=== PATIENT | female | born 1960 | race Caucasian/White ===

== ENCOUNTER 2018-06-21 17:56 | Emergency (ER) | payer OTHER ==
[~2018-06-21] VITALS: Ht 162.6 cm; Wt 65.8 kg
[~2018-06-21 17:56] MED LIST: AVAPRO300 MG; BACLOFEN5 GM; DIOVAN HCT 320/1 TAB; HUMALOG KW100 UNIT/1; HUMULIN N3 ML; HUMULIN R500 U/ML; HYDRALAZINE HCL25 MG PO; Intestinex CAP PO; NEURONTIN300 MG; NORVASC10 MG PO; SYNTHROID75 MCG PO; SYNTHROID88 MCG; TENORMIN25 MG; TENORMIN50 M1 PO; VASOTEC20 MG; ZOCOR20 MG; ZOCOR20 MG PO
[2018-06-21] MEDS ORDERED: KAPSPARGO SPRIN50 MG (18:10)
== END 2018-06-21 23:39 | disposition home or self-care (01) ==
LOC: ER 17:56 → CPU-OBS 17:57 → ER 23:39
DX: R07.89 Other chest pain (principal)

== ENCOUNTER 2019-07-20 21:29 | Emergency (ER) | payer OTHER ==
[~2019-07-20] VITALS: Ht 160 cm; Wt 67.1 kg
[~2019-07-20 21:29] MED LIST changes: +KAPSPARGO SPRIN50 MG
== END 2019-07-20 22:15 | disposition home or self-care (01) ==
LOC: ER 21:29
DX: I16.0 Hypertensive urgency (principal); I10 Essential (primary) hypertension

== ENCOUNTER 2019-08-20 15:16 | Inpatient (IN) | payer OTHER ==
[~2019-08-20] VITALS: Ht 162.6 cm; Wt 63.5 kg
[2019-08-21] MEDS ORDERED: SINGULAIR 10MG10 MG PO (10:37)
== END 2019-08-24 13:07 | disposition home or self-care (01) | DRG 690 ==
LOC: ER 15:16 → SEC-K 08-21 09:25 → MEDI 08-21 09:25 → MEDJ 08-21 11:05 → MEDI 08-21 13:38
PROVIDERS: ADMIT Internal Medicine; ATTEND Internal Medicine
PROC: BW40ZZZ Ultrasonography of Abdomen (ICD-10-PCS; principal; 2019-08-21)
PROC: BW24ZZZ Computerized Tomography (CT Scan) of Chest and Abdomen (ICD-10-PCS; 2019-08-21)
PROC: 4A0B78Z Measurement of Gastrointestinal Motility, Via Natural or Artificial Opening (ICD-10-PCS; 2019-08-23)
DX: N39.0 Urinary tract infection, site not specified (principal); R65.10 Systemic inflammatory response syndrome (SIRS) of non-infectious origin without acute organ dysfunction; N17.9 Acute kidney failure, unspecified; E10.22 Type 1 diabetes mellitus with diabetic chronic kidney disease; I12.9 Hypertensive chronic kidney disease with stage 1 through stage 4 chronic kidney disease, or unspecified chronic kidney disease; N18.3 Chronic kidney disease, stage 3 (moderate); R09.02 Hypoxemia; K29.00 Acute gastritis without bleeding; E03.8 Other specified hypothyroidism; E78.49 Other hyperlipidemia; K31.84 Gastroparesis; E87.5 Hyperkalemia; E86.0 Dehydration; E10.42 Type 1 diabetes mellitus with diabetic polyneuropathy; E10.319 Type 1 diabetes mellitus with unspecified diabetic retinopathy without macular edema; E10.649 Type 1 diabetes mellitus with hypoglycemia without coma; B96.1 Klebsiella pneumoniae [K. pneumoniae] as the cause of diseases classified elsewhere

== ENCOUNTER 2019-09-05 10:20 | Inpatient (IN) | payer OTHER ==
[~2019-09-05] VITALS: Ht 162.6 cm; Wt 63.5 kg
[~2019-09-05 10:20] MED LIST changes: +SINGULAIR 10MG10 MG PO
== END 2019-09-08 14:13 | disposition home or self-care (01) | DRG 394 ==
LOC: ER 10:20 → MEDI 18:34
PROVIDERS: ADMIT Internal Medicine; ATTEND Internal Medicine
PROC: 4A033R1 Measurement of Arterial Saturation, Peripheral, Percutaneous Approach (ICD-10-PCS; principal; 2019-09-05)
PROC: BW40ZZZ Ultrasonography of Abdomen (ICD-10-PCS; 2019-09-05)
PROC: 0DB58ZX Excision of Esophagus, Via Natural or Artificial Opening Endoscopic, Diagnostic (ICD-10-PCS; 2019-09-07)
PROC: 0DB78ZX Excision of Stomach, Pylorus, Via Natural or Artificial Opening Endoscopic, Diagnostic (ICD-10-PCS; 2019-09-07)
PROC: 0DB68ZX Excision of Stomach, Via Natural or Artificial Opening Endoscopic, Diagnostic (ICD-10-PCS; 2019-09-07)
DX: D13.1 Benign neoplasm of stomach (principal); E87.1 Hypo-osmolality and hyponatremia; K31.84 Gastroparesis; E10.43 Type 1 diabetes mellitus with diabetic autonomic (poly)neuropathy; E10.22 Type 1 diabetes mellitus with diabetic chronic kidney disease; N18.3 Chronic kidney disease, stage 3 (moderate); E10.65 Type 1 diabetes mellitus with hyperglycemia; E87.5 Hyperkalemia; E86.0 Dehydration; E10.649 Type 1 diabetes mellitus with hypoglycemia without coma; K29.60 Other gastritis without bleeding

== ENCOUNTER 2019-09-15 00:02 | Emergency (ER) | payer OTHER ==
[~2019-09-15] VITALS: Ht 162.6 cm; Wt 61.2 kg
== END 2019-09-15 04:50 | disposition home or self-care (01) ==
LOC: ER 00:02
DX: E13.649 Other specified diabetes mellitus with hypoglycemia without coma (principal); Z79.4 Long term (current) use of insulin

== ENCOUNTER 2019-11-17 19:51 | Emergency (ER) | payer OTHER ==
[~2019-11-17] VITALS: Ht 162.6 cm; Wt 59.0 kg
[2019-11-17] MEDS ORDERED: HYDRALAZINE HC100 MG (20:01)
[2019-11-17] MEDS ORDERED: HUMULIN 70100 UNIT/1 (20:02)
[2019-11-18] MEDS ORDERED: FAMOTIDINE20 MG PO (07:01)
[2019-11-18] MEDS ORDERED: HYOSCYAMINE0.125 MG PO (07:01)
== END 2019-11-18 07:30 | disposition home or self-care (01) ==
LOC: ER 19:51
DX: K31.84 Gastroparesis (principal); N17.8 Other acute kidney failure; Z20.828 Contact with and (suspected) exposure to other viral communicable diseases

== ENCOUNTER 2019-12-10 16:59 | Emergency (ER) | payer OTHER ==
[~2019-12-10] VITALS: Ht 162.6 cm; Wt 59.0 kg
[~2019-12-10 16:59] MED LIST changes: +FAMOTIDINE20 MG PO; +HUMULIN 70100 UNIT/1; +HYDRALAZINE HC100 MG; +HYOSCYAMINE0.125 MG PO
== END 2019-12-10 20:22 | disposition home or self-care (01) ==
LOC: ER 16:59
DX: E11.43 Type 2 diabetes mellitus with diabetic autonomic (poly)neuropathy (principal); K31.84 Gastroparesis; R10.84 Generalized abdominal pain; Z79.4 Long term (current) use of insulin

== ENCOUNTER 2020-06-20 23:47 | Emergency (ER) | payer OTHER ==
[~2020-06-20] VITALS: Ht 162.6 cm; Wt 63.5 kg
== END 2020-06-21 05:32 | disposition home or self-care (01) ==
LOC: ER 23:47
DX: E11.649 Type 2 diabetes mellitus with hypoglycemia without coma (principal)

== ENCOUNTER 2021-04-26 11:25 | Inpatient (IN) | payer OTHER ==
[~2021-04-26] VITALS: Ht 162.6 cm; Wt 63.5 kg
[2021-04-26] MEDS ORDERED: HUMALOG100 UNIT/2 SQ (12:20)
[2021-04-26] MEDS ORDERED: CARDURA1 MG (12:20)
== END 2021-05-08 19:28 | disposition home or self-care (01) | DRG 683 ==
LOC: ER 11:25 → MEDJ 04-27 11:55 → SEC-K 04-27 11:55 → MEDI 04-27 17:52 → MEDJ 04-27 18:06 → MEDI 04-30 15:46 → MEDJ 04-30 17:23
PROVIDERS: Radiology Vascular & Interventional Radiology; ADMIT Internal Medicine; ATTEND Internal Medicine
PROC: B513YZA Fluoroscopy of Right Jugular Veins using Other Contrast, Guidance (ICD-10-PCS; 2021-04-30)
PROC: 05HM33Z Insertion of Infusion Device into Right Internal Jugular Vein, Percutaneous Approach (ICD-10-PCS; principal; 2021-04-30 18:00)
PROC: 5A1D70Z Performance of Urinary Filtration, Intermittent, Less than 6 Hours Per Day (ICD-10-PCS; 2021-05-01)
PROC: B54PZZZ Ultrasonography of Bilateral Upper Extremity Veins (ICD-10-PCS; 2021-05-02)
PROC: 5A1D70Z Performance of Urinary Filtration, Intermittent, Less than 6 Hours Per Day (ICD-10-PCS; 2021-05-03)
PROC: 5A1D70Z Performance of Urinary Filtration, Intermittent, Less than 6 Hours Per Day (ICD-10-PCS; 2021-05-05)
PROC: 5A1D70Z Performance of Urinary Filtration, Intermittent, Less than 6 Hours Per Day (ICD-10-PCS; 2021-05-06)
PROC: 5A1D70Z Performance of Urinary Filtration, Intermittent, Less than 6 Hours Per Day (ICD-10-PCS; 2021-05-08)
DX: I12.9 Hypertensive chronic kidney disease with stage 1 through stage 4 chronic kidney disease, or unspecified chronic kidney disease (principal); N17.8 Other acute kidney failure; N18.6 End stage renal disease; E86.0 Dehydration; E87.5 Hyperkalemia; K31.84 Gastroparesis; Z79.4 Long term (current) use of insulin; Z99.2 Dependence on renal dialysis; E03.8 Other specified hypothyroidism; I12.0 Hypertensive chronic kidney disease with stage 5 chronic kidney disease or end stage renal disease; E10.22 Type 1 diabetes mellitus with diabetic chronic kidney disease; E10.65 Type 1 diabetes mellitus with hyperglycemia; E10.42 Type 1 diabetes mellitus with diabetic polyneuropathy; Z20.822 Contact with and (suspected) exposure to COVID-19; K21.9 Gastro-esophageal reflux disease without esophagitis

== ENCOUNTER 2021-10-29 13:39 | Inpatient (IN) | payer OTHER ==
[~2021-10-29] VITALS: Ht 162.6 cm; Wt 59.0 kg
[~2021-10-29 13:39] MED LIST changes: +CARDURA1 MG; +HUMALOG100 UNIT/2 SQ
[2021-10-29] MEDS ORDERED: CARDURA1 MG (13:53)
[2021-10-29] MEDS ORDERED: HUMULIN 70100 UNIT/2 SQ (13:54)
[2021-10-29] MEDS ORDERED: SYNTHROID75 MCG PO (13:55)
[2021-10-29] MEDS ORDERED: HUMALOG100 UNIT/2 (13:55)
[2021-10-29] MEDS ORDERED: TOPROL XL50 M1 PO (13:55)
[2021-10-29] MEDS ORDERED: SIMVASTATIN20 MG PO (13:55)
[2021-10-29] MEDS ORDERED: HYDRALAZINE HC100 MG PO (13:56)
[2021-10-29] MEDS ORDERED: NEURONTIN300 MG PO (13:56)
== END 2021-10-31 16:54 | disposition home or self-care (01) | DRG 555 ==
LOC: ER 13:39 → MEDJ 19:38
PROVIDERS: ADMIT Internal Medicine; ATTEND Internal Medicine
PROC: B54DZZZ Ultrasonography of Bilateral Lower Extremity Veins (ICD-10-PCS; principal; 2021-10-29)
DX: M62.838 Other muscle spasm (principal); N18.6 End stage renal disease; I12.0 Hypertensive chronic kidney disease with stage 5 chronic kidney disease or end stage renal disease; M79.662 Pain in left lower leg; M79.661 Pain in right lower leg; D63.1 Anemia in chronic kidney disease; Z20.822 Contact with and (suspected) exposure to COVID-19; Z99.2 Dependence on renal dialysis; Z91.15 Patient's noncompliance with renal dialysis

== ENCOUNTER 2022-08-14 08:50 | Emergency (ER) | payer OTHER ==
[~2022-08-14] VITALS: Ht 160 cm; Wt 58.1 kg
[~2022-08-14 08:50] MED LIST changes: +HUMALOG100 UNIT/2; +HUMULIN 70100 UNIT/2 SQ; +HYDRALAZINE HC100 MG PO; +NEURONTIN300 MG PO; +SIMVASTATIN20 MG PO; +TOPROL XL50 M1 PO
== END 2022-08-14 12:47 | disposition home or self-care (01) ==
LOC: ER 08:50
DX: U07.1 COVID-19 (principal); J02.8 Acute pharyngitis due to other specified organisms; E11.22 Type 2 diabetes mellitus with diabetic chronic kidney disease; N18.6 End stage renal disease; Z99.2 Dependence on renal dialysis; Z79.4 Long term (current) use of insulin; I12.0 Hypertensive chronic kidney disease with stage 5 chronic kidney disease or end stage renal disease; J45.909 Unspecified asthma, uncomplicated; E78.00 Pure hypercholesterolemia, unspecified

== ENCOUNTER 2024-06-22 10:39 | Inpatient (IN) | payer OTHER ==
[~2024-06-22] VITALS: Ht 160 cm; Wt 54.9 kg
[2024-06-22] MEDS ORDERED: LORazepam 2 MG/ML VIAL ONE (10:42)
[2024-06-22] MEDS ORDERED: 0.9 % SODIUM CHLORIDE 1,000 ML IV SCH (11:15)
[2024-06-22 12:16] LABS: HEMATOCRIT 32.9 % (36.0-45.00); HEMOGLOBIN 10.9 g/dL (12.0-15.00); MEAN CELL VOLUME 95.6 fL (80.00-100.00); MEAN CORPUSCULAR HEMOGLOBIN 31.8 pg (27.00-32.0); MEAN CORPUSCULAR HGB CONC 33.2 g/dl (32.0-36.0); PLATELET COUNT 197 K/uL (150-450); RED BLOOD COUNT 3.44 M/uL (4.00-6.00); RED CELL DISTRIBUTION WIDTH 15.1 % (11.5-14.5)
[2024-06-22 12:42] LABS: CALCIUM 10.7 mg/dL (8.5-10.1); GFR 9.47; POTASSIUM 4.12 mEq/L (3.5-5.1)
[2024-06-22 12:46] LABS: CREATININE SERUM 4.69 mg/dL (0.55-1.02)
[2024-06-22] MEDS ORDERED: SIMVASTATIN 40 MG TABLET PO SCH (17:05)
[2024-06-22] MEDS ORDERED: DEXTROSE 50 % IN WATER 0.5 G/ML VIAL IV PRN (17:15)
[2024-06-22] MEDS ORDERED: INSULIN LISPRO 1,000 UNIT/10 ML UNITS SUBCUTANEO PRN (17:15)
[2024-06-22] MEDS ORDERED: CEFTRIAXONE SODIUM 2,000 MG in 0.9 % SODIUM CHLORIDE 100 ML IV SCH (17:20)
[2024-06-22 18:40] LABS: CHOL HDL RATIO 2.4 (0-5.0)
[2024-06-22 18:51] LABS: C-REACTIVE PROTEIN 1.2 MG/DL (0.00-0.29)
[2024-06-22] MEDS ORDERED: CEFTRIAXONE SODIUM 1,000 MG VIAL ONE (19:46)
[2024-06-22 20:15] LABS: PH,URINE >= 9.0 (5.0-8.0); URINE APPEARANCE Clear; URINE BILIRRUBIN Negative (NEGATIVE); URINE BLOOD Negative; URINE COLOR Yellow; URINE KETONE Negative (NEGATIVE); URINE LEUKOCYTE Trace; URINE NITRATE Negative; URINE UROBILINOGEN 0.2 E.U./dl
[2024-06-22 20:19] LABS: URINE BACTERIA 2450.3 uL (0.0-1933); URINE EPITHELIAL CELLS 47.3 uL (0.0-38.8); URINE RBC 4.1 uL (0.0-20.8); URINE WBC 68.8 uL (0.0-23.2)
[2024-06-22 20:43] LABS: URINE CAST 1.17 uL (0.0-1.40); URINE GLUCOSE 250 MG/DL (NEGATIVE); URINE PROTEIN 300 (NEGATIVE)
[2024-06-22] MEDS ORDERED: HEPARIN SODIUM,PORCINE 5,000 UNITS/ML VIAL SUBCUTANEO SCH (21:00)
[2024-06-22] MEDS ORDERED: HEPARIN SODIUM,PORCINE 5,000 UNITS/ML VIAL ONE (21:45)
[2024-06-22 22:11] LABS: COVID-19 AG NEGATIVE (NEGATIVE)
[2024-06-22 22:13] LABS: INFLUENZA A AG NEGATIVE (NEGATIVE)
[2024-06-23 02:56] VITALS: BP 121/68; O2SAT 100
[2024-06-23] MEDS ORDERED: LEVOTHYROXINE SODIUM 75 MCG TABLET PO SCH (06:00)
[2024-06-23 07:50] VITALS: BP 135/53
[2024-06-23] MEDS ORDERED: METOPROLOL SUCCINATE 50 MG TAB.SR.24H PO SCH (09:00)
[2024-06-23] MEDS ORDERED: PANTOPRAZOLE SODIUM 40 MG TABLET.DR PO SCH (09:00)
[2024-06-23] MEDS ORDERED: VANCOMYCIN HCL 5 MG/ML REDILUIDO IV ONE (16:00)
[2024-06-23 18:31] VITALS: BP 130/55; O2SAT 100
[2024-06-23] MEDS ORDERED: INSULIN NPH HUMAN ISOPHANE 1,000 UNITS/10 ML UNITS SUBCUTANEO STA (21:26)
[2024-06-23] MEDS ORDERED: INSULIN NPH HUMAN ISOPHANE 1,000 UNITS/10 ML UNITS SUBCUTANEO ONE (22:07)
[2024-06-24 02:02] VITALS: BP 171/65; O2SAT 97
[2024-06-24 06:24] LABS: HEMATOCRIT 30.9 % (36.0-45.00); HEMOGLOBIN 10.3 g/dL (12.0-15.00); MEAN CORPUSCULAR HEMOGLOBIN 31.9 pg (27.00-32.0); MEAN CORPUSCULAR HGB CONC 33.5 g/dl (32.0-36.0); PLATELET COUNT 169 K/uL (150-450); RED BLOOD COUNT 3.25 M/uL (4.00-6.00); RED CELL DISTRIBUTION WIDTH 14.6 % (11.5-14.5)
[2024-06-24 07:27] LABS: ALBUMIN 3.1 gm/dL (3.4-5.0); BILIRUBIN TOTAL 0.35 mg/dL (0.3-1.2); GFR 10.5; GLOBULINA 3.6 G/DL (2.4-3.5); MAGNESIUM 1.8 mg/dL (1.8-2.4); PHOSPHOROUS 5.5 mg/dL (2.5-4.9); POTASSIUM 4.47 mEq/L (3.5-5.1); TOTAL PROTEIN 6.7 gm/dL (6.4-8.2)
[2024-06-24 07:52] LABS: CREATININE SERUM 4.29 mg/dL (0.55-1.02)
[2024-06-24] MEDS ORDERED: INSULIN NPH HUMAN ISOPHANE 1,000 UNITS/10 ML UNITS SUBCUTANEO SCH ×2 (08:00→21:00)
[2024-06-24] MEDS ORDERED: INSULIN LISPRO 1,000 UNIT/10 ML UNITS SUBCUTANEO SCH (08:00)
[2024-06-24] MEDS ORDERED: CLOPIDOGREL BISULFATE 75 MG TABLET PO SCH (09:00)
[2024-06-24 09:47] VITALS: BP 152/79; O2SAT 97
[2024-06-24] MEDS ORDERED: ENOXAPARIN SODIUM 30 MG/0.3 ML SYRINGE SUBCUTANEO SCH (13:36)
[2024-06-24] MEDS ORDERED: HEPARIN SODIUM,PORCINE 5,000 UNITS/ML VIAL SUBCUTANEO NR (14:00)
[2024-06-24 16:31] VITALS: BP 127/68
[2024-06-25 03:23] VITALS: BP 156/74; O2SAT 98
[2024-06-25 09:01] VITALS: BP 178/71; O2SAT 95
[2024-06-25 17:12] VITALS: BP 153/64
[2024-06-26 03:33] VITALS: BP 181/81; O2SAT 99
[2024-06-26 05:52] LABS: HEMATOCRIT 27.1 % (36.0-45.00); MEAN CELL VOLUME 96.9 fL (80.00-100.00); MEAN CORPUSCULAR HEMOGLOBIN 32.1 pg (27.00-32.0); MEAN CORPUSCULAR HGB CONC 33.2 g/dl (32.0-36.0); PLATELET COUNT 165 K/uL (150-450); RED CELL DISTRIBUTION WIDTH 14.9 % (11.5-14.5)
[2024-06-26 06:56] LABS: ALBUMIN 2.8 gm/dL (3.4-5.0); BILIRUBIN TOTAL 0.21 mg/dL (0.3-1.2); CALCIUM 9.1 mg/dL (8.5-10.1); GFR 5.61; GLOBULINA 3.1 G/DL (2.4-3.5); MAGNESIUM 1.7 mg/dL (1.8-2.4); POTASSIUM 5.31 mEq/L (3.5-5.1); TOTAL PROTEIN 5.9 gm/dL (6.4-8.2)
[2024-06-26 07:48] LABS: CREATININE SERUM 7.38 mg/dL (0.55-1.02)
[2024-06-26 08:17] VITALS: BP 190/78
[2024-06-26] MEDS ORDERED: SODIUM POLYSTYRENE SULFONATE 30G/8 TSP PO STA (11:26)
[2024-06-26] MEDS ORDERED: MAGNESIUM SULFATE IN WATER 50 ML IV NR (12:30)
[2024-06-26] MEDS ORDERED: AMLODIPINE BESYLATE 5 MG TABLET PO SCH (16:31)
[2024-06-26] MEDS ORDERED: hydrALAZINE HCL 50 MG TABLET PO SCH (17:49)
[2024-06-26 18:07] VITALS: BP 156/74; O2SAT 100
[2024-06-26] MEDS ORDERED: MIRTAZAPINE 15 MG TABLET PO SCH (21:00)
[2024-06-26] MEDS ORDERED: LORazepam 0.5 MG TABLET PO SCH (21:00)
[2024-06-27] VITALS: BP 157/65; O2SAT 100
[2024-06-27 06:20] LABS: HEMATOCRIT 28.7 % (36.0-45.00); HEMOGLOBIN 9.7 g/dL (12.0-15.00); MEAN CELL VOLUME 96.5 fL (80.00-100.00); MEAN CORPUSCULAR HEMOGLOBIN 32.5 pg (27.00-32.0); MEAN CORPUSCULAR HGB CONC 33.7 g/dl (32.0-36.0); PLATELET COUNT 182 K/uL (150-450); RED BLOOD COUNT 2.98 M/uL (4.00-6.00); RED CELL DISTRIBUTION WIDTH 14.6 % (11.5-14.5)
[2024-06-27 07:03] LABS: ALBUMIN 3.1 gm/dL (3.4-5.0); BILIRUBIN TOTAL 0.31 mg/dL (0.3-1.2); CALCIUM 9.9 mg/dL (8.5-10.1); GFR 9.45; GLOBULINA 3.5 G/DL (2.4-3.5); MAGNESIUM 2.3 mg/dL (1.8-2.4); PHOSPHOROUS 4.9 mg/dL (2.5-4.9); POTASSIUM 4.63 mEq/L (3.5-5.1); TOTAL PROTEIN 6.6 gm/dL (6.4-8.2)
[2024-06-27 07:45] LABS: CREATININE SERUM 4.7 mg/dL (0.55-1.02)
[2024-06-27] MEDS ORDERED: AMLODIPINE BESYLATE 5 MG TABLET PO SCH (09:00)
[2024-06-27] MEDS ORDERED: EPOETIN ALFA-EPBX 10,000 UNIT/ML VIAL (Retacrit) SUBCUTANEO SCH (09:00)
[2024-06-27] MEDS ORDERED: hydrALAZINE HCL 50 MG TABLET PO SCH (09:00)
[2024-06-27] MEDS ORDERED: HEPARIN SODIUM,PORCINE 5,000 UNITS/ML VIAL SUBCUTANEO SCH (09:00)
[2024-06-27 09:02] VITALS: BP 133/62; O2SAT 97
[2024-06-27 20:35] VITALS: BP 158/70; O2SAT 100
[2024-06-28 01:03] VITALS: BP 154/57; O2SAT 100
[2024-06-28 08:00] VITALS: BP 168/73
[2024-06-28] MEDS ORDERED: NIFEDIPINE ER30 M1 PO (13:16)
[2024-06-28] MEDS ORDERED: TOPROL XL50 M1 PO (13:16)
[2024-06-28] MEDS ORDERED: CLOPIDOGREL BIS75 MG PO (13:16)
[2024-06-28] MEDS ORDERED: LEVOTHYROXINE75 MCG PO (13:17)
[2024-06-28] MEDS ORDERED: SIMVASTATIN40 MG PO (13:17)
[2024-06-28] MEDS ORDERED: HYDRALAZINE HCL50 MG PO (13:17)
[2024-06-28] MEDS ORDERED: HEPARIN SODIUM,PORCINE 5,000 UNITS/ML VIAL IV NR (17:00)
[2024-06-28] MEDS ORDERED: NIFEDIPINE 30 MG TAB.SA.OSM PO SCH (17:00)
[2024-06-28 18:15] VITALS: BP 153/54; O2SAT 100
== END 2024-06-28 18:54 | disposition home or self-care (01) | DRG 579 ==
LOC: ER 10:39 → MEDI 17:52
PROVIDERS: Emergency Medicine; Internal Medicine; ADMIT Internal Medicine; ATTEND Internal Medicine
PROC: B54DZZZ Ultrasonography of Bilateral Lower Extremity Veins (ICD-10-PCS; 2024-06-22)
PROC: B44HZZZ Ultrasonography of Bilateral Lower Extremity Arteries (ICD-10-PCS; 2024-06-22)
PROC: 0JBN3ZZ Excision of Right Lower Leg Subcutaneous Tissue and Fascia, Percutaneous Approach (ICD-10-PCS; principal; 2024-06-23)
DX: L97.818 Non-pressure chronic ulcer of other part of right lower leg with other specified severity (principal); N18.6 End stage renal disease; L03.115 Cellulitis of right lower limb; N17.8 Other acute kidney failure; I12.0 Hypertensive chronic kidney disease with stage 5 chronic kidney disease or end stage renal disease; E11.622 Type 2 diabetes mellitus with other skin ulcer; Z79.4 Long term (current) use of insulin; L08.89 Other specified local infections of the skin and subcutaneous tissue; E03.8 Other specified hypothyroidism; I10 Essential (primary) hypertension; E78.49 Other hyperlipidemia; E87.5 Hyperkalemia; E83.42 Hypomagnesemia; Z99.2 Dependence on renal dialysis; E11.22 Type 2 diabetes mellitus with diabetic chronic kidney disease

== ENCOUNTER 2024-07-30 04:54 | Emergency (ER) | payer OTHER ==
[~2024-07-30] VITALS: Ht 160 cm; Wt 62.6 kg
[~2024-07-30 04:54] MED LIST changes: +CLOPIDOGREL BIS75 MG PO; +HYDRALAZINE HCL50 MG PO; +LEVOTHYROXINE75 MCG PO; +NIFEDIPINE ER30 M1 PO; +SIMVASTATIN40 MG PO
== END 2024-07-30 06:50 | disposition home or self-care (01) ==
LOC: ER 05:10
DX: G62.9 Polyneuropathy, unspecified (principal); E11.9 Type 2 diabetes mellitus without complications; Z79.4 Long term (current) use of insulin

== ENCOUNTER 2024-08-25 14:46 | Inpatient (IN) | payer OTHER ==
[~2024-08-25] VITALS: Ht 160 cm; Wt 59.0 kg
--- NOTE | 2024-08-25 15:18 | NUR ---
SE RECIBE PACIENTE ALERTA Y ORIENTADA X3 LA CUAL REFIERE VENIR A CAUSA DE QUE DASH ESTADO PRESENTANDO SINTOMAS DE DOLOR DE ESPALDA BAJA Y DOLOR EN COSTADO DERECHO. LA MISMA REFIERE QUE SE ATIENDE CON DR. JAYLAN OROZCO QUIE LA DIALISA.
[2024-08-25] MEDS ORDERED: ACETAMINOPHEN 500 MG GEL..CAP PO ONE ×2 (16:45→17:39)
[2024-08-25 18:11] LABS: BASO % 0.9 % (0.1-1.2); EOS # 0.15 (0.04-0.54); EOS % 2.4 % (0.7-7.0); LYMPH # 2.20 (1.18-3.74); LYMPH % 34.8 % (19.3-53.1); MEAN PLATELET VOLUME 10.40 fl (9.4-12.4); MONO # 0.68 (0.24-0.82); MONO % 10.8 % (4.7-12.5); NEUT # 3.22 (1.56-6.13); NEUT % 50.9 % (34.0-71.1); RED CELL DISTRIBUTION WIDTH 14.6 % (11.6-14.4)
[2024-08-25 18:14] LABS: ERYTHROCYTE SEDIMENTATION RATE 110 mm/hr (0-30)
[2024-08-25 18:32] LABS: INR 1.06
[2024-08-25 18:42] LABS: ALT/SGPT 10.0 U/L (12-78); AST/SGOT 8.0 U/L (15-37); BILIRUBIN TOTAL 0.39 mg/dL (0.3-1.2); GLOBULINA 4.3 G/DL (2.4-3.5)
--- NOTE | 2024-08-25 18:42 | NUR ---
SE REALIZA LAB CATE ORDEN MEDICA BAJO MEDIDAS ASEPTICAS. SE ORIENTA PTE QUIEN REFIERE ENTENDER Y ACEPTAR
[2024-08-25 18:44] LABS: BUN CREA RATIO 8.0 (7.0-25.0); OSMOLALITY SERUM 292.0 MOSM/KG (275-295)
[2024-08-25 18:49] LABS: GFR 6.58
[2024-08-25] MEDS ORDERED: DEXTROSE 50 % IN WATER 0.5 G/ML VIAL IV ONE ×2 (19:15→19:17)
[2024-08-25 19:36] LABS: CREATININE SERUM 6.43 mg/dL (0.55-1.02); GLUCOSE FASTING 37.0 mg/dL (65-100)
[2024-08-26] MEDS ORDERED: DEXTROSE 50 % IN WATER 0.5 G/ML VIAL IV STA (05:37)
[2024-08-26] MEDS ORDERED: KETOROLAC TROMETHAMINE 30 MG VIAL IV STA (05:41)
--- NOTE | 2024-08-26 05:54 | NUR ---
SE REALIZA DXT, PACIENTE PRESENTA 44MG/DL. SE ADMINISTRA DEXTROSE 25GM IV STAT Y MEDICAMENTO PARA EL DOLOR EN CADERA IZQUIERDA CATE ORDEN MEDICA. SE COORDINA NIEVES X.
--- NOTE | 2024-08-26 07:54 | NUR ---
PTE EN CAMA CON BARBADA CON IVF'S PATENTE Y GAETANO DE EDEMA. SE LE S/V Y SE DOCUMETA. SE MANTIENE EN CONSULTA CON SHARON DHALIWAL LA CUAL SE MANTIENE NOTIFICADA. SE MANTIENE BAJO OBSERVACION.
[2024-08-26] MEDS ORDERED: ORPHENADRINE CITRATE 100 MG TABLET PO SCH (13:42)
[2024-08-26] MEDS ORDERED: MEPERIDINE HCL/PF 25 MG/ML VIAL IV PRN (13:45)
[2024-08-26] MEDS ORDERED: INSULIN LISPRO 1,000 UNIT/10 ML UNITS SUBCUTANEO PRN (13:45)
[2024-08-26] MEDS ORDERED: DEXTROSE 50 % IN WATER 0.5 G/ML VIAL IV PRN (13:45)
[2024-08-26] MEDS ORDERED: VANCOMYCIN HCL 1,000 MG VIAL IV SCH ×2 (13:45→17:00)
[2024-08-26 14:50] VITALS: BP 115/78
[2024-08-26] MEDS ORDERED: SIMVASTATIN 40 MG TABLET PO SCH (17:00)
[2024-08-26] MEDS ORDERED: INSULIN NPH HUMAN ISOPHANE 1,000 UNITS/10 ML UNITS SUBCUTANEO SCH (17:00)
[2024-08-26] MEDS ORDERED: INSULIN LISPRO 1,000 UNIT/10 ML UNITS SUBCUTANEO SCH (17:00)
[2024-08-26] MEDS ORDERED: GABAPENTIN 300 MG CAPSULE PO SCH (17:00)
[2024-08-26 17:10] VITALS: BP 158/75; O2SAT 95
[2024-08-27] VITALS: BP 154/67; O2SAT 97
[2024-08-27] MEDS ORDERED: LEVOTHYROXINE SODIUM 75 MCG TABLET PO SCH (06:00)
[2024-08-27 08:00] VITALS: BP 194/84; O2SAT 98
[2024-08-27 08:09] LABS: BASO % 1.0 % (0.1-1.2); EOS # 0.28 (0.04-0.54); EOS % 4.0 % (0.7-7.0); LYMPH # 1.54 (1.18-3.74); LYMPH % 21.8 % (19.3-53.1); MEAN PLATELET VOLUME 11.20 fl (9.4-12.4); MONO # 0.70 (0.24-0.82); MONO % 9.9 % (4.7-12.5); NEUT # 4.47 (1.56-6.13); NEUT % 63.2 % (34.0-71.1); RED CELL DISTRIBUTION WIDTH 14.5 % (11.6-14.4)
[2024-08-27 08:36] LABS: ALT/SGPT 9.0 U/L (12-78); AST/SGOT 8.0 U/L (15-37); BILIRUBIN TOTAL 0.43 mg/dL (0.3-1.2); GLOBULINA 3.6 G/DL (2.4-3.5)
[2024-08-27] MEDS ORDERED: INSULIN NPH HUMAN ISOPHANE 1,000 UNITS/10 ML UNITS SUBCUTANEO SCH (09:00)
[2024-08-27] MEDS ORDERED: METOPROLOL SUCCINATE 50 MG TAB.SR.24H PO SCH (09:00)
[2024-08-27 09:30] LABS: BUN CREA RATIO 9.0 (7.0-25.0); GFR 4.97; OSMOLALITY SERUM 305.0 MOSM/KG (275-295)
[2024-08-27 10:31] LABS: GLUCOSE FASTING 38.0 mg/dL (65-100)
[2024-08-27 10:32] LABS: CREATININE SERUM 8.2 mg/dL (0.55-1.02)
[2024-08-27] MEDS ORDERED: CALCIUM GLUCONATE 100 MG/ML VIAL IV STA (12:40)
[2024-08-27] MEDS ORDERED: SODIUM POLYSTYRENE SULFONATE 30G/8 TSP PO SCH (13:00)
[2024-08-27] MEDS ORDERED: LACTULOSE 20 G/30 ML BLIST.PACK PO SCH (13:00)
[2024-08-27] MEDS ORDERED: DEXTROSE 10 % IN WATER 1,000 ML IV SCH (13:30)
[2024-08-27] MEDS ORDERED: HEPARIN SODIUM,PORCINE 1,000 UNITS/ML VIAL IV SCH (13:30)
[2024-08-27] MEDS ORDERED: HEPARIN SODIUM,PORCINE 1,000 UNITS/ML VIAL SPEPROC NR (13:30)
[2024-08-27] MEDS ORDERED: INSULIN LISPRO 1,000 UNIT/10 ML UNITS SUBCUTANEO PRN (15:30)
[2024-08-27] MEDS ORDERED: DEXTROSE 50 % IN WATER 0.5 G/ML VIAL IV PRN (15:30)
[2024-08-27 16:00] VITALS: BP 161/67; O2SAT 95
[2024-08-27] MEDS ORDERED: DEXTROSE PO STA (17:00)
[2024-08-28 01:34] VITALS: BP 114/59; O2SAT 96
[2024-08-28 06:48] LABS: ALT/SGPT 10.0 U/L (12-78); AST/SGOT 9.0 U/L (15-37); BILIRUBIN TOTAL 0.53 mg/dL (0.3-1.2); BUN CREA RATIO 7.0 (7.0-25.0); GFR 7.88; GLOBULINA 3.9 G/DL (2.4-3.5)
[2024-08-28 07:42] LABS: CREATININE SERUM 5.5 mg/dL (0.55-1.02); GLUCOSE FASTING 220.0 mg/dL (65-100); OSMOLALITY SERUM 288.0 MOSM/KG (275-295)
[2024-08-28 08:00] VITALS: BP 134/69; O2SAT 98
[2024-08-28 16:40] VITALS: BP 100/63; O2SAT 99
[2024-08-28] MEDS ORDERED: TRIAMCINOLONE ACETONIDE TOP SCH (17:00)
[2024-08-29 00:28] VITALS: BP 105/60; O2SAT 97
[2024-08-29 08:33] LABS: ALT/SGPT 9.0 U/L (12-78); AST/SGOT 8.0 U/L (15-37); BILIRUBIN TOTAL 0.46 mg/dL (0.3-1.2); GLOBULINA 3.5 G/DL (2.4-3.5); T4 TOTAL 8.71 UG/DL (4.8-13.9)
[2024-08-29 09:21] LABS: BUN CREA RATIO 7.0 (7.0-25.0); GFR 5.57; GLUCOSE FASTING 249.0 mg/dL (65-100); OSMOLALITY SERUM 292.0 MOSM/KG (275-295); TSH 0.053 uIU/mL (0.358-3.74)
[2024-08-29 09:23] LABS: CREATININE SERUM 7.43 mg/dL (0.55-1.02)
[2024-08-29 16:59] VITALS: BP 127/67; O2SAT 95
== END 2024-08-29 21:05 | disposition home or self-care (01) | DRG 73 ==
LOC: ER 14:46 → SURG 08-26 13:59 → SEC-K 08-26 13:59 → SURG 08-26 14:20 → SURH 08-29 08:00
PROVIDERS: Emergency Medicine; Internal Medicine Endocrinology, Diabetes & Metabolism; Internal Medicine Nephrology; ADMIT Internal Medicine; ATTEND Internal Medicine
PROC: BW21ZZZ Computerized Tomography (CT Scan) of Abdomen and Pelvis (ICD-10-PCS; 2024-08-25)
PROC: 5A1D70Z Performance of Urinary Filtration, Intermittent, Less than 6 Hours Per Day (ICD-10-PCS; principal; 2024-08-29)
DX: G62.89 Other specified polyneuropathies (principal); N18.6 End stage renal disease; I12.0 Hypertensive chronic kidney disease with stage 5 chronic kidney disease or end stage renal disease; Z79.4 Long term (current) use of insulin; E11.42 Type 2 diabetes mellitus with diabetic polyneuropathy; E11.22 Type 2 diabetes mellitus with diabetic chronic kidney disease; Z99.2 Dependence on renal dialysis; M54.42 Lumbago with sciatica, left side; E11.649 Type 2 diabetes mellitus with hypoglycemia without coma; E87.5 Hyperkalemia; E03.9 Hypothyroidism, unspecified

== ENCOUNTER 2024-11-25 20:11 | Emergency (ER) | payer OTHER ==
[~2024-11-25] VITALS: Ht 160 cm; Wt 49.9 kg
[2024-11-25] MEDS ORDERED: BUDESONIDE 0.5 MG/2 ML AMPUL.NEB IH STA (21:57)
[2024-11-25] MEDS ORDERED: KETOROLAC TROMETHAMINE 30 MG VIAL IM STA (21:59)
[2024-11-25] MEDS ORDERED: LEVALBUTEROL HCL 1.25 MG/3 ML SOLUTION IH SCH (22:00)
[2024-11-25] MEDS ORDERED: IPRATROPIUM BROMIDE 0.5 MG/2.5 ML AMPUL.NEB IH SCH (22:00)
[2024-11-25] MEDS ORDERED: KETOROLAC TROMETHAMINE 30 MG VIAL ONE (22:21)
[2024-11-25] MEDS ORDERED: LEVALBUTEROL HCL 1.25 MG/3 ML SOLUTION IH ONE (22:50)
[2024-11-25] MEDS ORDERED: BUDESONIDE 0.5 MG/2 ML AMPUL.NEB IH ONE (22:50)
[2024-11-25] MEDS ORDERED: IPRATROPIUM BROMIDE 0.5 MG/2.5 ML AMPUL.NEB IH ONE (22:51)
[2024-11-25 23:12] LABS: BASO % 0.7 % (0.1-1.2); EOS # 0.14 (0.04-0.54); EOS % 2.6 % (0.7-7.0); LYMPH # 2.14 (1.18-3.74); LYMPH % 39.1 % (19.3-53.1); MEAN PLATELET VOLUME 10.00 fl (9.4-12.4); MONO # 0.55 (0.24-0.82); MONO % 10.0 % (4.7-12.5); NEUT # 2.60 (1.56-6.13); NEUT % 47.4 % (34.0-71.1); RED CELL DISTRIBUTION WIDTH 14.8 % (11.6-14.4)
[2024-11-25 23:50] LABS: ALT/SGPT 10.0 U/L (12-78); AST/SGOT 12.0 U/L (15-37); BILIRUBIN TOTAL 0.4 mg/dL (0.3-1.2); BUN CREA RATIO 7.0 (7.0-25.0); GFR 9.83; GLOBULINA 5.0 G/DL (2.4-3.5); GLUCOSE FASTING 61.0 mg/dL (65-100); OSMOLALITY SERUM 284.0 MOSM/KG (275-295)
[2024-11-25 23:56] LABS: CREATININE SERUM 4.53 mg/dL (0.55-1.02)
[2024-11-26] MEDS ORDERED: IPRATROPIUM BROMIDE 0.5 MG/2.5 ML AMPUL.NEB IH ONE (00:11)
== END 2024-11-26 02:07 | disposition home or self-care (01) ==
LOC: ER 20:11
PROVIDERS: General Practice
DX: J45.901 Unspecified asthma with (acute) exacerbation (principal); J45.909 Unspecified asthma, uncomplicated; M54.50 Low back pain, unspecified
CPT/HCPCS: 36415 ×2; 71046; 94644; 96372; 99283; J1885

== ENCOUNTER 2024-12-08 12:01 | Inpatient (IN) | payer OTHER ==
[~2024-12-08] VITALS: Ht 165.1 cm; Wt 68.0 kg
--- NOTE | 2024-12-08 12:16 | NUR ---
PTE ALERTA Y ORIENTADA X3, SE OBED S/V. PTE LLEGA A ER EN AMBULANCIA Y REIFERE QUE EN EL ASHANTI DE JOAQUINA TUVO JOSE ALBERTO CAIDAS, YA QUE TENIA DEBILIDAD EN LAS PIERNAS. PTE REFIERE QUE NO SE GOLPEO LA MICHAEL, SE UBICA PTE EN IVY AREA DE OBSERVACION.
[2024-12-08] MEDS ORDERED: ACETAMINOPHEN 500 MG GEL..CAP PO ONE ×2 (13:45→13:46)
[2024-12-08] MEDS ORDERED: LEVOTHYROXINE SODIUM 75 MCG TABLET PO ONE (13:45)
[2024-12-08] MEDS ORDERED: DEXAMETHASONE SODIUM PHOSPHATE 4 MG/ML VIAL IM ONE (13:45)
--- NOTE | 2024-12-08 13:45 | NUR ---
RN CANCEL EDUCA A PACIENTE SOBRE TRATAMIENTO MEDICO EL CUAL REFIERE ENTENDER, SE REALIZA BRAIN DE MUESTRAS CATE ORDEN MEDICA Y SE ADMINISTRA MEDICAMENTOS.
[2024-12-08] MEDS ORDERED: DEXAMETHASONE SODIUM PHOSPHATE 4 MG/ML VIAL ONE (13:46)
[2024-12-08 14:24] LABS: BASO % 0.5 % (0.1-1.2); EOS # 0.19 (0.04-0.54); EOS % 1.8 % (0.7-7.0); LYMPH # 2.29 (1.18-3.74); LYMPH % 21.5 % (19.3-53.1); MEAN PLATELET VOLUME 10.40 fl (9.4-12.4); MONO # 0.98 (0.24-0.82); MONO % 9.2 % (4.7-12.5); NEUT # 7.08 (1.56-6.13); NEUT % 66.6 % (34.0-71.1); RED CELL DISTRIBUTION WIDTH 15.2 % (11.6-14.4)
[2024-12-08 14:36] LABS: ERYTHROCYTE SEDIMENTATION RATE 51 mm/hr (0-30)
[2024-12-08 14:47] LABS: INR 1.03
[2024-12-08 14:58] LABS: ALT/SGPT 13.0 U/L (12-78); AST/SGOT 16.0 U/L (15-37); BILIRUBIN TOTAL 0.46 mg/dL (0.3-1.2); GLOBULINA 4.6 G/DL (2.4-3.5)
[2024-12-08 15:00] LABS: BUN CREA RATIO 8.0 (7.0-25.0); GFR 7.65; OSMOLALITY SERUM 287.0 MOSM/KG (275-295)
[2024-12-08] MEDS ORDERED: DEXTROSE 50 % IN WATER 0.5 G/ML DISP.SYRIN IV ONE (15:01)
[2024-12-08 15:03] LABS: CREATININE SERUM 5.63 mg/dL (0.55-1.02); GLUCOSE FASTING 41.0 mg/dL (65-100)
[2024-12-09] MEDS ORDERED: MORPHINE SULFATE 4 MG/ML CARTRIDGE IV ONE (04:00)
[2024-12-09] MEDS ORDERED: INSULIN REGULAR, HUMAN 1,000 UNIT/10 ML UNITS IV ONE (04:15)
[2024-12-09] MEDS ORDERED: SODIUM CHLORIDE 0.45 % 1,000 ML IV SCH (04:45)
[2024-12-09] MEDS ORDERED: TRAMADOL HCL 50 MG TABLET PO ONE (04:45)
[2024-12-09] MEDS ORDERED: INSULIN LISPRO 1,000 UNIT/10 ML UNITS SUBCUTANEO PRN (04:45)
[2024-12-09] MEDS ORDERED: DEXTROSE 50 % IN WATER 0.5 G/ML DISP.SYRIN IV PRN (04:45)
[2024-12-09] MEDS ORDERED: GABAPENTIN 300 MG CAPSULE PO ONE (05:00)
--- NOTE | 2024-12-09 05:30 | NUR ---
SE LE NOTIFICA DXT DE PACIENTE A
[2024-12-09 05:44] VITALS: BP 114/70
[2024-12-09] MEDS ORDERED: LEVOTHYROXINE SODIUM 75 MCG TABLET PO SCH (06:00)
[2024-12-09 08:00] VITALS: BP 106/73; O2SAT 96
[2024-12-09 08:32] VITALS: BP 121/68; BP 92/59; O2SAT 94; O2SAT 95
[2024-12-09] MEDS ORDERED: METOPROLOL SUCCINATE 50 MG TAB.SR.24H PO SCH (09:00)
[2024-12-09 12:44] VITALS: BP 86/50
[2024-12-09] MEDS ORDERED: 0.9 % SODIUM CHLORIDE 1,000 ML IV SCH (14:15)
[2024-12-09 16:00] VITALS: BP 99/61; O2SAT 93
[2024-12-09] MEDS ORDERED: AMINO ACIDS/PROTEIN HYDROLYS 30 ML BLIST.PACK PO SCH (17:00)
[2024-12-09] MEDS ORDERED: SIMVASTATIN 20 MG TABLET PO SCH (17:00)
[2024-12-10 00:30] VITALS: BP 125/78; O2SAT 96
[2024-12-10] MEDS ORDERED: INSULIN GLARGINE,HUM.REC.ANLOG 1,000 UNITS/10 ML UNITS SUBCUTANEO ONE (03:00)
[2024-12-10 08:37] VITALS: BP 110/73; O2SAT 94
[2024-12-10] MEDS ORDERED: VITAMIN B COMPLEX/LYSINE 15 ML BLIST.PACK PO SCH (09:00)
[2024-12-10] MEDS ORDERED: HALOPERIDOL LACTATE 5 MG/ML AMPUL IM PRN (11:30)
[2024-12-10 16:50] VITALS: BP 106/61; O2SAT 98
[2024-12-10] MEDS ORDERED: QUETIAPINE FUMARATE 25 MG TABLET PO SCH (21:00)
[2024-12-10] MEDS ORDERED: ACETAMINOPHEN 500 MG GEL..CAP PO SCH (22:06)
[2024-12-11 01:16] VITALS: BP 111/74; O2SAT 98
[2024-12-11 07:15] LABS: BASO % 0.6 % (0.1-1.2); EOS # 0.35 (0.04-0.54); EOS % 3.5 % (0.7-7.0); LYMPH # 2.37 (1.18-3.74); LYMPH % 24.0 % (19.3-53.1); MEAN PLATELET VOLUME 11.10 fl (9.4-12.4); MONO # 0.69 (0.24-0.82); MONO % 7.0 % (4.7-12.5); NEUT # 6.37 (1.56-6.13); NEUT % 64.5 % (34.0-71.1); RED CELL DISTRIBUTION WIDTH 14.9 % (11.6-14.4)
[2024-12-11 07:47] LABS: ALT/SGPT 12.0 U/L (12-78); AST/SGOT 19.0 U/L (15-37); BILIRUBIN TOTAL 0.44 mg/dL (0.3-1.2); BUN CREA RATIO 11.0 (7.0-25.0); GFR 8.48; GLOBULINA 3.5 G/DL (2.4-3.5); GLUCOSE FASTING 64.0 mg/dL (65-100); OSMOLALITY SERUM 287.0 MOSM/KG (275-295)
[2024-12-11 07:57] LABS: CREATININE SERUM 5.15 mg/dL (0.55-1.02)
[2024-12-11 08:00] VITALS: BP 112/62; O2SAT 95
[2024-12-11] MEDS ORDERED: Cyanocobalamin/Mecobalamin 1 TAB.SL SL SCH (09:00)
[2024-12-11 16:40] VITALS: BP 116/70; O2SAT 95
[2024-12-12 00:26] VITALS: BP 107/56; O2SAT 96
[2024-12-12] MEDS ORDERED: INSULIN LISPRO 1,000 UNIT/10 ML UNITS SUBCUTANEO STA (01:01)
[2024-12-12] MEDS ORDERED: INSULIN NPH HUMAN ISOPHANE 1,000 UNITS/10 ML UNITS SUBCUTANEO STA (01:01)
[2024-12-12] MEDS ORDERED: INSULIN REGULAR, HUMAN 1,000 UNIT/10 ML UNITS IV STA ×2 (01:02→03:30)
[2024-12-12] MEDS ORDERED: INSULIN LISPRO 1,000 UNIT/10 ML UNITS SUBCUTANEO SCH (08:00)
[2024-12-12] MEDS ORDERED: INSULIN NPH HUMAN ISOPHANE 1,000 UNITS/10 ML UNITS SUBCUTANEO SCH ×2 (08:00→21:00)
[2024-12-12 10:34] VITALS: BP 90/64; O2SAT 95
[2024-12-12 16:30] VITALS: BP 150/91; O2SAT 95
[2024-12-12] MEDS ORDERED: NA PHOS,M-B/NA PHOS,DI-BA 1 BOTTLE ENEMA RECTAL SCH (20:45)
[2024-12-12] MEDS ORDERED: QUETIAPINE FUMARATE 25 MG TABLET PO SCH (21:00)
[2024-12-13 01:25] VITALS: BP 118/70; O2SAT 99
[2024-12-13] MEDS ORDERED: LACTULOSE 20 G/30 ML BLIST.PACK PO SCH (05:00)
[2024-12-13] MEDS ORDERED: INSULIN LISPRO 1,000 UNIT/10 ML UNITS SUBCUTANEO SCH (08:00)
[2024-12-13] MEDS ORDERED: INSULIN GLARGINE,HUM.REC.ANLOG 1,000 UNITS/10 ML UNITS SUBCUTANEO SCH (09:00)
[2024-12-13 09:30] VITALS: BP 134/82; O2SAT 98
[2024-12-13 18:13] VITALS: BP 144/80; O2SAT 100
[2024-12-13] MEDS ORDERED: INSULIN NPH HUMAN ISOPHANE 1,000 UNITS/10 ML UNITS SUBCUTANEO SCH (21:00)
[2024-12-14 03:24] VITALS: BP 138/77; O2SAT 96
[2024-12-14 07:48] LABS: ALT/SGPT 11.0 U/L (12-78); AST/SGOT 11.0 U/L (15-37); BILIRUBIN TOTAL 0.48 mg/dL (0.3-1.2); GLOBULINA 3.0 G/DL (2.4-3.5); T4 TOTAL 6.31 UG/DL (4.8-13.9)
[2024-12-14] MEDS ORDERED: INSULIN LISPRO 1,000 UNIT/10 ML UNITS SUBCUTANEO SCH (08:00)
[2024-12-14 08:18] LABS: BUN CREA RATIO 15.0 (7.0-25.0); GFR 5.6; OSMOLALITY SERUM 307.0 MOSM/KG (275-295)
[2024-12-14 08:19] LABS: GLUCOSE FASTING 290.0 mg/dL (65-100)
[2024-12-14 08:20] LABS: CREATININE SERUM 7.38 mg/dL (0.55-1.02); TSH 0.051 uIU/mL (0.358-3.74)
[2024-12-14] MEDS ORDERED: LACTULOSE 10 G/15 ML ML PO STA (08:28)
[2024-12-14] MEDS ORDERED: SODIUM POLYSTYRENE SULFONATE 30G/8 TSP PO SCH (09:00)
[2024-12-14] MEDS ORDERED: INSULIN GLARGINE,HUM.REC.ANLOG 1,000 UNITS/10 ML UNITS SUBCUTANEO SCH (09:00)
[2024-12-14 09:12] VITALS: BP 164/80; O2SAT 97
[2024-12-14] MEDS ORDERED: HEPARIN SODIUM,PORCINE/PF 100 UNIT/ML SYRINGE IV ONE (16:32)
[2024-12-14] MEDS ORDERED: CEFAZOLIN SODIUM 1,000 MG VIAL ONE (16:44)
[2024-12-14] MEDS ORDERED: INSULIN LISPRO 1,000 UNIT/10 ML UNITS SUBCUTANEO ONE (16:53)
[2024-12-14] MEDS ORDERED: LIDOCAINE HCL 1% 20 ML VIAL IJ ONE (17:32)
[2024-12-14 23:27] VITALS: BP 147/64; O2SAT 95
[2024-12-15 03:14] VITALS: BP 128/65; O2SAT 97
[2024-12-15 08:40] VITALS: BP 94/52; O2SAT 96
[2024-12-15 10:23] VITALS: BP 106/64
[2024-12-15] MEDS ORDERED: KETOROLAC TROMETHAMINE 30 MG VIAL IV STA (12:51)
[2024-12-15] MEDS ORDERED: KETOROLAC TROMETHAMINE 30 MG VIAL IV PRN (13:00)
[2024-12-15 16:06] LABS: BUN CREA RATIO 14.0 (7.0-25.0); GFR 10.58
[2024-12-15 16:19] LABS: GLUCOSE FASTING 331.0 mg/dL (65-100); OSMOLALITY SERUM 295.0 MOSM/KG (275-295)
[2024-12-15 16:22] LABS: CREATININE SERUM 4.25 mg/dL (0.55-1.02)
[2024-12-15 17:05] VITALS: BP 127/66
[2024-12-16 02:22] VITALS: BP 118/66; O2SAT 96
[2024-12-16 08:40] LABS: BUN CREA RATIO 13.0 (7.0-25.0); GFR 8.42
[2024-12-16 09:53] LABS: CREATININE SERUM 5.18 mg/dL (0.55-1.02); OSMOLALITY SERUM 304.0 MOSM/KG (275-295)
[2024-12-16 10:29] LABS: GLUCOSE FASTING 347.0 mg/dL (65-100)
[2024-12-16 11:34] VITALS: BP 97/47; O2SAT 98
[2024-12-16 19:27] VITALS: BP 135/65
[2024-12-17 03:00] VITALS: BP 149/74; O2SAT 95
[2024-12-17] MEDS ORDERED: FAMOTIDINE/PF 20 MG/2 ML VIAL IV STA (08:45)
[2024-12-17 11:19] VITALS: BP 162/76; O2SAT 98
[2024-12-18 01:36] VITALS: BP 161/74; O2SAT 98
[2024-12-18] MEDS ORDERED: INSULIN LISPRO 1,000 UNIT/10 ML UNITS SUBCUTANEO SCH (08:00)
[2024-12-18 08:31] VITALS: BP 112/66; O2SAT 96
[2024-12-18] MEDS ORDERED: FAMOTIDINE/PF 20 MG/2 ML VIAL IV SCH (09:00)
[2024-12-18 18:04] VITALS: BP 156/75; O2SAT 96
[2024-12-19 02:32] VITALS: BP 138/70; O2SAT 98
[2024-12-19 08:44] VITALS: BP 166/72; O2SAT 98
[2024-12-19 14:17] LABS: BASO % 0.6 % (0.1-1.2); EOS # 0.16 (0.04-0.54); EOS % 1.9 % (0.7-7.0); LYMPH # 1.61 (1.18-3.74); LYMPH % 18.7 % (19.3-53.1); MEAN PLATELET VOLUME 10.10 fl (9.4-12.4); MONO # 0.57 (0.24-0.82); MONO % 6.6 % (4.7-12.5); NEUT # 6.18 (1.56-6.13); NEUT % 72.0 % (34.0-71.1); RED CELL DISTRIBUTION WIDTH 15.4 % (11.6-14.4)
[2024-12-19 15:07] LABS: COVID-19 AG NEGATIVE (NEGATIVE)
== END 2024-12-19 16:28 | disposition home or self-care (01) | DRG 683 ==
LOC: ER 12:01 → SURH 12-09 05:15 → MEDJ 12-09 05:15 → SURH 12-09 07:24 → MEDJ 12-12 09:09
PROVIDERS: Internal Medicine Endocrinology, Diabetes & Metabolism; Internal Medicine Nephrology; ADMIT Internal Medicine; ATTEND Internal Medicine
PROC: BW21ZZZ Computerized Tomography (CT Scan) of Abdomen and Pelvis (ICD-10-PCS; 2024-12-08)
PROC: BW28ZZZ Computerized Tomography (CT Scan) of Head (ICD-10-PCS; 2024-12-08)
PROC: B24BYZZ Ultrasonography of Heart with Aorta using Other Contrast (ICD-10-PCS; 2024-12-09)
PROC: B345ZZZ Ultrasonography of Bilateral Common Carotid Arteries (ICD-10-PCS; 2024-12-09)
PROC: CW1N1ZZ Planar Nuclear Medicine Imaging of Whole Body using Technetium 99m (Tc-99m) (ICD-10-PCS; 2024-12-09)
PROC: 5A1D70Z Performance of Urinary Filtration, Intermittent, Less than 6 Hours Per Day (ICD-10-PCS; 2024-12-10)
PROC: BR39YZZ Magnetic Resonance Imaging (MRI) of Lumbar Spine using Other Contrast (ICD-10-PCS; 2024-12-11)
PROC: 05HP33Z Insertion of Infusion Device into Right External Jugular Vein, Percutaneous Approach (ICD-10-PCS; 2024-12-14)
PROC: B543ZZA Ultrasonography of Right Jugular Veins, Guidance (ICD-10-PCS; 2024-12-14)
PROC: 5A1D70Z Performance of Urinary Filtration, Intermittent, Less than 6 Hours Per Day (ICD-10-PCS; principal; 2024-12-15)
DX: N18.6 End stage renal disease (principal); T82.868A Thrombosis due to vascular prosthetic devices, implants and grafts, initial encounter; Z99.2 Dependence on renal dialysis; Z79.4 Long term (current) use of insulin; E11.22 Type 2 diabetes mellitus with diabetic chronic kidney disease; I12.0 Hypertensive chronic kidney disease with stage 5 chronic kidney disease or end stage renal disease; E87.5 Hyperkalemia; E03.8 Other specified hypothyroidism; E11.21 Type 2 diabetes mellitus with diabetic nephropathy; E03.9 Hypothyroidism, unspecified; M25.552 Pain in left hip; D63.1 Anemia in chronic kidney disease; E11.43 Type 2 diabetes mellitus with diabetic autonomic (poly)neuropathy; K31.84 Gastroparesis; E21.2 Other hyperparathyroidism
CPT/HCPCS: 72158